=== PATIENT | female | born 2005 | race Caucasian/White ===

== ENCOUNTER 2023-01-06 18:12 | Emergency (ER) | payer OTHER ==
[2023-01-06 18:24] VITALS: BP 111/72; PULSE 100; RESP 18; TEMP 98.2; BMI 28.3
[2023-01-06] MEDS ORDERED: ONDANSETRON 4 MG/2 ML VIAL IVPUSH ONE (18:34)
[2023-01-06] MEDS ORDERED: SODIUM CHLORIDE 0.9% 500 ML INFUS.BAG IV ONE (18:34)
[2023-01-06] MEDS ORDERED: ONDANSETRON 4 MG/2 ML VIAL ONE (19:12)
[2023-01-06] MEDS ORDERED: METOCLOPRAMIDE HCL INJECTION 10 MG/2 ML VIAL IVPUSH ONE (19:16)
[2023-01-06] MEDS ORDERED: ACETAMINOPHEN 1000 MG/100 ML BAG IVPB ONE (19:16)
[2023-01-06] MEDS ORDERED: METOCLOPRAMIDE HCL INJECTION 10 MG/2 ML VIAL ONE (19:23)
[2023-01-06] MEDS ORDERED: ACETAMINOPHEN INJECTION 100 ML IVPB ONE (19:23)
[2023-01-06 19:50] LABS: BASO % 0.5 % (0-2.0); EOS % 1.1 % (0-4.5); HEMATOCRIT 40.9 % (32.4-45.2); LYMPH % 38.1 % (8-40); MCH 28.4 pg (25.7-33.7); MCHC 34.2 g/dl (32.0-36.0); MEAN PLT VOLUME 8.6 fl (7.5-11.1); MONO % 5.8 % (3.8-10.2); NEUT % 54.5 % (42.8-82.8); PLATELET COUNT 249 10^3/uL (134-434); RBC 4.92 M/mm3 (3.60-5.2); RDW 13.1 % (11.6-15.6); WHITE BLOOD COUNT 6.9 K/mm3 (4.0-10.0)
[2023-01-06 20:06] LABS: POTASSIUM 4.5 mmol/L (3.5-5.1)
[2023-01-06 20:09] LABS: BLOOD UREA NITROGEN 11.1 mg/dL (7-18)
[2023-01-06 20:11] LABS: CREATININE 0.8 mg/dL (0.55-1.3)
[2023-01-06 20:13] LABS: BILIRUBIN,TOTAL 0.2 mg/dL (0.2-1)
[2023-01-06 21:38] LABS: EPI CELLS >36 /uL (0-25.1); HYALINE CASTS 0 /uL (0-3.1); PH,URINE 7.5 (5.0-8.0); URINE APPEARANCE CLEAR; URINE BACTERIA 234 /uL (0-1359); URINE BILIRUBIN NEGATIVE (NEGATIVE); URINE COLOR YELLOW; URINE GLUCOSE (UA) NEGATIVE (NEGATIVE); URINE KETONE NEGATIVE (NEGATIVE); URINE LEUK ESTERASE 1+ (NEGATIVE); URINE NITRITE NEGATIVE (NEGATIVE); URINE PROTEIN NEGATIVE (NEGATIVE); URINE RBC 5 /uL (0-23.9); URINE UROBILINOGEN 0.2 mg/dL (0.2-1.0); URINE WBC 28 /uL (0-25.8)
[2023-01-06 21:39] LABS: HCG,QUALITATIVE URINE Negative
[2023-01-06] MEDS ORDERED: KETOROLAC TROMETHAMINE 30 MG/1 ML VIAL IVPUSH ONE (21:42)
[2023-01-06] MEDS ORDERED: KETOROLAC TROMETHAMINE 30 MG/1 ML VIAL ONE (21:42)
== END 2023-01-06 21:58 | disposition home or self-care (01) ==
LOC: JER 18:12
PROC: 3E033NZ Introduction of Analgesics, Hypnotics, Sedatives into Peripheral Vein, Percutaneous Approach (ICD-10-PCS; principal; 2023-01-06)
PROC: 3E0333Z Introduction of Anti-inflammatory into Peripheral Vein, Percutaneous Approach (ICD-10-PCS; 2023-01-06)
PROC: 3E033GC Introduction of Other Therapeutic Substance into Peripheral Vein, Percutaneous Approach (ICD-10-PCS; 2023-01-06)
DX: R42 Dizziness and giddiness (principal); R11.0 Nausea; R51.9 Headache, unspecified; H53.71 Glare sensitivity; G43.909 Migraine, unspecified, not intractable, without status migrainosus
CPT/HCPCS: 36415; 80053; 81003; 84703; 85025; 87077; 87086; 93005; 93010; 99284-25

== ENCOUNTER 2023-07-30 17:15 | Emergency (ER) | payer OTHER ==
[2023-07-30 17:29] VITALS: BP 118/53; PULSE 74; RESP 18; TEMP 98.6; BMI 32.3
[2023-07-30] MEDS ORDERED: NAPROXEN 500 MG TABLET ONE (18:50)
[2023-07-30] MEDS: NAPROXEN 500 MG TABLET PO ONE (18:51)
== END 2023-07-30 20:24 | disposition home or self-care (01) ==
LOC: JERFT 17:15
DX: M79.672 Pain in left foot (principal)
CPT/HCPCS: 73630-TC-LT; 99283-25